=== PATIENT | female | born 1990 | race Caucasian/White ===

== ENCOUNTER 2019-06-30 18:04 | Emergency (ER) | payer SELFPAY ==
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
[2019-06-30 18:28] VITALS: BP 153/93
--- NOTE | 2019-06-30 19:06 | RADIOLOGY REPORT (SQ) ---
EXAM DESCRIPTION: CT HEAD WITHOUT COMPLETED DATE/TIME: 06/30/2019 6:53 pm REASON FOR STUDY: facial droop COMPARISON: None. TECHNIQUE: Axial images acquired through the brain without intravenous contrast. Images reviewed wit h bone, brain and subdural windows. Images stored on PACS. All CT scanners at this facility use dose modulation, iterative reconstruction, and/or weight based d osing when appropriate to reduce radiation dose to as low as reasonably achievable (ALARA). [facility]: Dose Right [facility]: CareDose [facility]: Dose Right [facility]: Teradose 4D [facility]: AnyPresence RADIATION DOSE: CT Rad equipment meets quality standard of care and radiation dose reduction techniq ues were employed. CTDIvol: 53.2 mGy. DLP: 964 mGy-cm.. LIMITATIONS: None. FINDINGS: VENTRICLES: Normal size and contour. CEREBRUM: No masses. No hemorrhage. No midline shift. Age appropriate white matter. No evidence for a cute infarction. CEREBELLUM: No masses. No hemorrhage. No alteration of density. No evidence for acute infarction. EXTRA-AXIAL SPACES: No fluid collections. ORBITS AND GLOBE: No intra- or extraconal masses. Normal contour of globe without masses. CALVARIUM: No fracture. PARANASAL SINUSES: No fluid or mucosal thickening. SOFT TISSUES: No mass or hematoma. OTHER: No other significant finding. IMPRESSION: NO ACUTE INTRACRANIAL FINDINGS. EVIDENCE OF ACUTE STROKE: NO. TECHNICAL DOCUMENTATION: JOB ID: [id number] [place]-72 Quality ID # [id number]: Final reports with documentation of one or more dose reduction techniques (e.g., Au tomated exposure control, adjustment of the mA and/or kV according to patient size, use of iterative reconstruction technique) 2010 [employer]- All Rights Reserved Reading location - IP/workstation name: [email or web address]
--- NOTE | 2019-06-30 19:09 | RADIOLOGY REPORT (SQ) ---
EXAM DESCRIPTION: CT CERVICAL SPINE WITHOUT COMPLETED DATE/TIME: 06/30/2019 6:52 pm REASON FOR STUDY: left neck pain COMPARISON: None. TECHNIQUE: Axial images acquired through the cervical spine without intravenous contrast. Images re viewed with lung, soft tissue and bone windows. Reconstructed coronal and sagittal MPR images review ed. Images stored on PACS. All CT scanners at this facility use dose modulation, iterative reconstruction, and/or weight based d osing when appropriate to reduce radiation dose to as low as reasonably achievable (ALARA). [facility]: Dose Right [facility]: CareDose [facility]: Dose Right [facility]: Teradose 4D [facility]: [email or web address] RADIATION DOSE: CT Rad equipment meets quality standard of care and radiation dose reduction techniq ues were employed. CTDIvol: 15.0 mGy. DLP: 264 mGy-cm. mGy. LIMITATIONS: None. FINDINGS: ALIGNMENT: Anatomic. MINERALIZATION: Normal. VERTEBRAL BODIES: No fractures or dislocation. DISCS: No significant disc disease. FACETS, LATERAL MASSES, POSTERIOR ELEMENTS: No fractures. No dislocation. No acute findings. HARDWARE: None in the spine. VISUALIZED RIBS: No fractures. LUNG APICES AND SOFT TISSUES: No significant or acute findings. OTHER: No other significant finding. IMPRESSION: NO ACUTE OR SIGNIFICANT FINDINGS IN THE CERVICAL SPINE. TECHNICAL DOCUMENTATION: JOB ID: [id number] [place]-72 Quality ID # [id number]: Final reports with documentation of one or more dose reduction techniques (e.g., Au tomated exposure control, adjustment of the mA and/or kV according to patient size, use of iterative reconstruction technique) 2010 [employer]- All Rights Reserved Reading location - IP/workstation name: [email or web address]
[2019-06-30 20:24] LABS: ABSOLUTE BASOPHILS # (AUTO) 0.1 10^3/uL (0.0-0.2); ABSOLUTE EOSINOPHILS # (AUTO) 0.2 10^3/uL (0.0-0.6); ABSOLUTE MONOCYTES (AUTO) 0.6 10^3/uL (0.1-1.4); RED CELL DISTRIBUTION WIDTH 12.9 % (11.5-14.0); TOTAL CELLS COUNTED % (AUTO) 100 %
[2019-06-30 20:30] LABS: ABSOLUTE LYMPHOCYTES (AUTO) 2.2 10^3/uL (0.5-4.7); ABSOLUTE NEUT (AUTO) 5.8 10^3/uL (1.7-8.2); BASOPHILS % (AUTO) 0.8 % (0-2); EOSINOPHILS % (AUTO) 2.2 % (0-6); HEMATOCRIT 43.4 % (36.0-47.0); HEMOGLOBIN 15.4 g/dL (12.0-15.5); LYMPHOCYTES % (AUTO) 24.6 % (13-45); MEAN CORPUSCULAR HEMOGLOBIN 32.3 pg (27.0-33.4); MEAN CORPUSCULAR HGB CONC 35.4 g/dL (32.0-36.0); MEAN CORPUSCULAR VOLUME 91 fl (80-97); MONOCYTES % (AUTO) 6.5 % (3-13); PLATELET COUNT 281 10^3/uL (150-450); RED BLOOD COUNT 4.76 10^6/uL (3.72-5.28); SEGMENTED NEUTROPHILS % (AUTO) 65.9 % (42-78); WHITE BLOOD COUNT 8.8 10^3/uL (4.0-10.5)
[2019-06-30 20:35] LABS: APPEARANCE,URINE CLOUDY; BILIRUBIN,URINE NEGATIVE (NEGATIVE); COLOR,URINE YELLOW; GLUCOSE, URINE NEGATIVE (NEGATIVE); KETONES,URINE NEGATIVE (NEGATIVE); PROTEIN,URINE NEGATIVE (NEGATIVE); URINE SPECIFIC GRAVITY 1.011; UROBILINOGEN,URINE NEGATIVE mg/dL (<2.0)
[2019-06-30 20:54] LABS: URINE BARBITURATES SCREEN NEGATIVE; URINE BENZODIAZEPINES SCREEN NEGATIVE; URINE COCAINE SCREEN NEGATIVE; URINE MARIJUANA (THC) SCREEN NEGATIVE; URINE METHADONE SCREEN NEGATIVE; URINE PHENCYCLIDINE SCREEN NEGATIVE
[2019-06-30 20:58] LABS: URINE AMPHETAMINES SCREEN UNCONFIRMED POSITIVE
[2019-06-30 21:13] LABS: ERYTHROCYTE SEDIMENTATION RATE 12 mm/hr (0-20)
--- NOTE | 2019-06-30 22:02 | ER Document Report ---
ED General - General Chief Complaint: Facial Droop Stated Complaint: LEFT SIDE NECK PAIN/BACK OF HEAD PAIN Time Seen by Provider: 06/30/19 18:16 Primary Care Provider: [facility] [Provider Group] - Follow up as needed TRAVEL OUTSIDE OF THE [place] IN LAST 30 DAYS: No - Related Data Allergies/Adverse Reactions: No Known Allergies Allergy (Verified 06/30/19 18:20) Home Medications: adderal. 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) Family History: Reviewed & Not Pertinent Patient has suicidal ideation: No Patient has homicidal ideation: No Physical Exam - Vital signs Vitals: Temp Pulse Resp BP Pulse Ox 98.3 F 107 H 20 153/93 H 99 06/30/19 18:10 06/30/19 18:10 06/30/19 18:10 06/30/19 18:10 06/30/19 18:10 Course - Vital Signs Vital signs: Temp Pulse Resp BP Pulse Ox 98.3 F 107 H 20 153/93 H 99 06/30/19 18:10 06/30/19 18:10 06/30/19 18:10 06/30/19 18:10 06/30/19 18:10 - Laboratory Result Diagrams: 06/30/19 20:00 Laboratory results interpreted by me: 06/30/19 20:00 Urine Blood LARGE H Leukocyte Esterase Rfl MODERATE H Discharge - Discharge Clinical Impression: Torticollis ADHD Qualifiers: Attention deficit-hyperactivity disorder type: unspecified Qualified Code(s): F90.9 - Attention-deficit hyperactivity disorder, unspecified type Benzodiazepine withdrawal Qualifiers: Complication of substance-induced condition: with unspecified complication Qualified Code(s): F13.239 - Sedative, hypnotic or anxiolytic dependence with withdrawal, unspecified Condition: Stable Disposition: HOME, SELF-CARE Additional Instructions: See your mental health provider to discuss your medications. See primary care referral doctor regarding further evaluation of musculoskeletal discomfort of your neck. Return here as needed for new or worsening symptoms. Referrals: [facility] [Provider Group] - Follow up as needed
== END 2019-06-30 22:46 | disposition home or self-care (01) ==
LOC: ER 18:04
DX: M43.6 Torticollis (principal); F13.239 Sedative, hypnotic or anxiolytic dependence with withdrawal, unspecified; F90.9 Attention-deficit hyperactivity disorder, unspecified type; M62.838 Other muscle spasm; R20.8 Other disturbances of skin sensation; F17.200 Nicotine dependence, unspecified, uncomplicated; F10.21 Alcohol dependence, in remission; Z87.820 Personal history of traumatic brain injury
CPT/HCPCS: 36415; 70450; 72125; 80307; 81001; 84443; 84703; 85025; 85652; 99284

== ENCOUNTER 2019-08-07 17:20 | Emergency (ER) | payer SELFPAY ==
--- NOTE | 2019-08-07 17:52 | ER Document Report ---
ED Medical Screen (RME) - General Stated Complaint: PSYCH EVAL Time Seen by Provider: 08/07/19 17:44 Mode of Arrival: Ambulatory Information source: Patient Notes: Patient presents from [facility] to health facility. Patient states that she does not have insurance and she could not afford the treatment there so she presented here. Patient reports increased stress and occasional visual hallucinations. Patient vague historian. Review of documents from the [facility] facility does demonstrate that patient has had thoughts of hanging herself although patient denies this at this time. Patient presently denies any suicidal homicidal ideation. I have greeted and performed a rapid initial assessment of this patient. A comprehensive ED assessment and evaluation of the patient, analysis of test results and completion of the medical decision making process will be conducted by additional ED providers. TRAVEL OUTSIDE OF THE [place] IN LAST 30 DAYS: No - Related Data Allergies/Adverse Reactions: No Known Allergies Allergy (Verified 06/30/19 18:20) Physical Exam - Vital signs Vitals: Temp Pulse Resp BP Pulse Ox 98.0 F 75 16 125/76 100 08/07/19 17:25 08/07/19 17:25 08/07/19 17:25 08/07/19 17:25 08/07/19 17:25 - Neurological [place] Coma Scale Eye Opening: Spontaneous Brunilda Coma Scale Verbal: Oriented [place] Coma Scale Motor: Obeys Commands [place] Coma Scale Total: 15 - Psychological Associated symptoms: Normal affect, Normal mood, Visual hallucinations Course - Vital Signs Vital signs: Temp Pulse Resp BP Pulse Ox 98.0 F 75 16 125/76 100 08/07/19 17:25 08/07/19 17:25 08/07/19 17:25 08/07/19 17:25 08/07/19 17:25
[2019-08-07 18:58] LABS: ABSOLUTE BASOPHILS # (AUTO) 0.1 10^3/uL (0.0-0.2); ABSOLUTE EOSINOPHILS # (AUTO) 0.4 10^3/uL (0.0-0.6); ABSOLUTE MONOCYTES (AUTO) 0.6 10^3/uL (0.1-1.4); ABSOLUTE NEUT (AUTO) 4.5 10^3/uL (1.7-8.2); BASOPHILS % (AUTO) 0.7 % (0-2); EOSINOPHILS % (AUTO) 4.8 % (0-6); HEMOGLOBIN 14.2 g/dL (12.0-15.5); LYMPHOCYTES % (AUTO) 34.7 % (13-45); MEAN CORPUSCULAR HEMOGLOBIN 31.7 pg (27.0-33.4); MEAN CORPUSCULAR HGB CONC 34.8 g/dL (32.0-36.0); MEAN CORPUSCULAR VOLUME 91 fl (80-97); MONOCYTES % (AUTO) 7.1 % (3-13); PLATELET COUNT 269 10^3/uL (150-450); RED BLOOD COUNT 4.49 10^6/uL (3.72-5.28); RED CELL DISTRIBUTION WIDTH 13.4 % (11.5-14.0); SEGMENTED NEUTROPHILS % (AUTO) 52.7 % (42-78); TOTAL CELLS COUNTED % (AUTO) 100 %; WHITE BLOOD COUNT 8.5 10^3/uL (4.0-10.5)
[2019-08-07 19:07] LABS: APPEARANCE,URINE CLEAR; BILIRUBIN,URINE NEGATIVE (NEGATIVE); COLOR,URINE YELLOW; GLUCOSE, URINE NEGATIVE (NEGATIVE); KETONES,URINE NEGATIVE (NEGATIVE); LEUKOCYTE ESTERASE,URINE TRACE (NEGATIVE); NITRITE,URINE NEGATIVE (NEGATIVE); PROTEIN,URINE NEGATIVE (NEGATIVE); UROBILINOGEN,URINE NEGATIVE mg/dL (<2.0)
[2019-08-07 19:20] LABS: URINE BARBITURATES SCREEN NEGATIVE; URINE BENZODIAZEPINES SCREEN NEGATIVE; URINE COCAINE SCREEN NEGATIVE; URINE MARIJUANA (THC) SCREEN NEGATIVE; URINE METHADONE SCREEN NEGATIVE; URINE PHENCYCLIDINE SCREEN NEGATIVE
[2019-08-07 19:21] LABS: URINE AMPHETAMINES SCREEN UNCONFIRMED POSITIVE
[2019-08-07 19:22] LABS: ACETAMINOPHEN < 10 ug/mL (10-30); ALBUMIN 4.8 g/dL (3.5-5.0); ALCOHOL < 10 mg/dL (NONE DETECTED); ALKALINE PHOSPHATASE 61 U/L (38-126); ANION GAP 9 (5-19); ASPARTATE AMINO TRANSFERASE 16 U/L (14-36); BILIRUBIN,TOTAL 0.3 mg/dL (0.2-1.3); BLOOD UREA NITROGEN 14 mg/dL (7-20); CALCIUM 9.3 mg/dL (8.4-10.2); CARBON DIOXIDE 26 mmol/L (22-30); CHLORIDE 105 mmol/L (98-107); GLUCOSE 90 mg/dL (75-110); POTASSIUM 3.9 mmol/L (3.6-5.0); SALICYLATE < 1.0 mg/dL (2.0-20.0); TOTAL PROTEIN 7.6 g/dL (6.3-8.2)
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
[2019-08-07] MEDS ORDERED: HALOPERIDOL LACTATE INJ 5 MG/1 ML VIAL IV ONE (20:30)
[2019-08-07] MEDS ORDERED: LORAZEPAM INJ 2 MG/1 ML VIAL IM ONE (22:34)
[2019-08-07] MEDS ORDERED: CHLORPROMAZINE HCL INJ 25 MG/1 ML AMPULE IM PRN (22:37)
--- NOTE | 2019-08-08 07:44 | EKG REPORT ---
SEVERITY:- NORMAL ECG - SINUS RHYTHM : Confirmed by: José Rojo MD 08-Aug-2019 07:43:47
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
--- NOTE | 2019-08-08 10:31 | ER Document Report ---
Doctor's Note Notes: 08/08/19 10:27 Was advised by nursing last evening at approximately 2230 that Patient was extremely paranoid, stating she could not stay voluntarily, that she wanted leave. Nursing stated the patient was yelling, screaming, cursing and becoming unreasonable. Advising nursing the patient could be placed on a 24-hour IVC pet ition and that Dr. Carrillo was the attending physician, who if in agreement could sign and notary would need to witness and sign. Nursing indicated she would talk with Dr. Carrillo regarding this approach.
[2019-08-08] MEDS ORDERED: CHLORPROMAZINE HCL INJ 25 MG/1 ML AMPULE IM STA (15:37)
[2019-08-08] MEDS ORDERED: BENZTROPINE MESYLATE INJ 2 MG/2 ML AMPULE IM STA (15:37)
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
[2019-08-08] MEDS: CHLORPROMAZINE HCL INJ 25 MG/1 ML AMPULE IM SCH (21:13)
[2019-08-09] MEDS: CHLORPROMAZINE HCL INJ 25 MG/1 ML AMPULE IM SCH (09:14)
[2019-08-09] MEDS ORDERED: BENZTROPINE MESYLATE 1 MG TABLET PO SCH (10:00)
--- NOTE | 2019-08-09 13:00 | PSYCHOLOGICAL NOTE ---
Psych Note - Psych Note Date seen by psych provider: 08/09/19 Time seen by psych provider: 12:15 Psych Note: Patient is a 29-year-old female who presents to ED via POV with concerns for possible psychosis as described as auditory and visual hallucinations and delusions of a paranoid nature. Patient agreed to remain in ED overnight for stabilization, however patient became aggressive and agitated last night requiring a 24-hour petition for evaluation. Check in conducted with patient. Patient spoke of using Adderall for energy and Xanax to be able to go to sleep. Clinician provided psychoeducation regarding addiction and how patient's admission of misuse of Adderall and Xanax is suggestive of an addiction to Adderall and Xanax. Patient realized a believe that her current presentation is not related to Adderall, as she has been on Adderall since age 13 and has no problems being on or off of the Adderall. Patient states she has no concern with not being prescribed Adderall or Xanax again. Patient reports she is agreeable to appropriate medications to manage symptoms of her PTSD and increased clinical contact with her therapist. Patient spoke of confusion regarding an unknown "entity" being good or bad. Patient reports auditory hallucinations such as hearing footsteps, tapping the windows, chairs moving. Patient reports ideas of reference regarding road signs, phone numbers, and TV show the office. Patient spoke of the positive attributes of the "entity" as described as the entity waking her up to "rub daughter back to life." Patient spoke of seeing mock on her daughter's forehead, witnessing daughter shallow breathing, and low blood pressure and the belief that the entity woke her up in order to save her daughter's life. Updated: patient was informed of medication adjustments and the decision to move forward with inpatient placement. Patient verbalized no questions or concerns. Patient was alert and oriented to person, place, time, and circumstance. Mood was anxious with congruent affect. Patient was engaged and cooperative with clinician. She denied suicidal and homicidal ideation, intent or plan. She endorsed auditory and visual hallucinations and there is evidence of delusions both by patient and collateral report. Patient reports actively engaging in behaviors directly related to the delusions. There was no evidence she was responding to internal stimuli during the evaluation. Thought processes were organized, linear, and rational insofar as how she explained her current circumstances. Conversational speech was within normal limits for rate, tone, and prosody. Intellectual abilities are estimated within the average range. Eye contact was not well maintained in this evaluation, patient had her eyes closed during the reevaluation. This was different than prior presentations when patient maintained appropriate eye contact. Attention and concentration was good. Insight, judgment, and impulse control was fair to poor. Medication recommendations per [facility] contracted psychiatrist Dr. Parker MD a re as follows: Add Zyprexa 5MG, at noon Continue Thorazine 50MG, then every 12 hours Continue Cogentin 1MG,then daily Impression/Plan: Patient is recommended for IVC. Medication recommendations have been provided. Patient presented to ED with concerns of psychosis. Patient has a mental health diagnosis of PTSD (significant trauma history), history of a brain injury, and is experiencing delusions and hallucinations. Patient was kept overnight in the ED voluntarily for stabilization and observation, however became aggressive and agitated with staff, so a 24HR petition was placed for her safety. Patient's insight and judgment continues to be impaired. Patient continues to be somewhat emotional labile. Patient speaks of knowing the difference between delusion and reality however patient continues to blend delusions to fit her reality. Patient is actively engaging in behaviors tied to her delusions. Patient speaks of an unknown entity being good or bad. Patient reports auditory hallucinations reported to this entity, patient endorsed ideas of reference, and spoke of using Adderall for energy and Xanax to sleep. Patient is considered to be a danger to herself, and she would be unable without care, supervision, and the continued assistance of others to be able to maintain self-control and judgment. There is reasonable probability of patient suffering serious physical debilitation within the near future unless adequate treatment is given. Dr. Cisneros was consulted on the care and management of this patient; attending physician is in agreement with recommendations and disposition.
[2019-08-09] MEDS ORDERED: OLANZAPINE 5 MG TABLET PO ONE (14:26)
--- NOTE | 2019-08-09 14:32 | ER Document Report ---
Doctor's Note Notes: 08/09/19 14:30 Patient's chart and medication were reviewed. New orders were put in on recommendation of the behavioral health team. I spoke with the patient and she is quite calm and reasonable at this time. I told her the medications and been ordered as either IM or p.o., she said she would have no problems swallowing the tablets so she could avoid multiple injections. The previously ordered Thorazine 50 mg IM every 12 was changed to Thorazine 50 mg p.o. every 12. The Cogentin was already put in as 1 mg p.o. daily. Zyprexa 5 mg daily at noon was added. She is receiving her first dose of Zyprexa now. She will remain on IVC papers.
[2019-08-09 17:18] VITALS: BP 121/75
--- NOTE | 2019-08-09 17:32 | ER Document Report ---
Doctor's Note Notes: 08/09/19 17:31 deputy coroner here for transport. Pt awake and alert and nontoxic and medically stable.
[2019-08-09] MEDS ORDERED: CHLORPROMAZINE HCL 50 MG TABLET PO SCH (22:00)
[2019-08-10] MEDS ORDERED: OLANZAPINE 5 MG TABLET PO ONE (12:00)
== END 2019-08-09 17:37 | disposition home or self-care (01) ==
LOC: ER 17:20
DX: F22 Delusional disorders (principal); F90.9 Attention-deficit hyperactivity disorder, unspecified type; F17.200 Nicotine dependence, unspecified, uncomplicated; F43.10 Post-traumatic stress disorder, unspecified; Z62.810 Personal history of physical and sexual abuse in childhood
CPT/HCPCS: 93005; 99285; 96372; 36415; 80307 ×4; 84703; 85025; 80053; 81001; 93010; J0515; J3230 ×2; J1630; J2060